=== PATIENT | female | born 1955 | race Caucasian/White ===

== ENCOUNTER 2020-05-03 16:09 | Emergency (ER) | payer OTHER ==
[~2020-05-03] VITALS: Ht 180.3 cm; Wt 59.0 kg
[2020-05-03 16:21] VITALS: BP_SYST 146
[2020-05-03] MEDS ORDERED: FLUO40CA8 PO (16:21)
[2020-05-03] MEDS ORDERED: ESZO3TAB27 PO (16:21)
[2020-05-03] MEDS ORDERED: BUSP15TA3 PO (16:21)
[2020-05-03] MEDS ORDERED: KETOROLAC TROMETHAMINE 60 MG/2 ML VIAL IM ONE (16:30)
[2020-05-03] MEDS ORDERED: ONDANSETRON 4 MG ODT TAB PO ONE (16:30)
[2020-05-03 16:57] LABS: BASOPHILS % (AUTO) 0.4 % (0.0-2.0); EOSINOPHILS % (AUTO) 0.5 % (0.0-4.0); HEMATOCRIT 38.5 % (36-48); HEMOGLOBIN 12.9 g/dL (12.0-16.0); LYMPHOCYTES # (AUTO) 0.8 K/uL (1.0-5.5); LYMPHOCYTES % (AUTO) 8.3 % (20.5-51.5); MEAN CORPUSCULAR HEMOGLOBIN 32 pg (27-31); MEAN CORPUSCULAR HGB CONC 34 % (32-36); MEAN CORPUSCULAR VOLUME 94 fL (79.0-98.0); MONOCYTES # (AUTO) 0.7 K/uL (0.0-1.0); MONOCYTES % (AUTO) 7.7 % (1.7-9.3); NEUTROPHILS # (AUTO) 7.7 K/uL (1.8-7.7); NEUTROPHILS % (AUTO) 83.1 % (40.0-70.0); PLATELET COUNT (AUTO) 188 K/uL (130-430); RED BLOOD CELL COUNT(AUTO) 4.09 MIL/uL (4.2-6.2); RED CELL DISTRIBUTION WIDTH 13.4 % (9.0-15.0); WHITE BLOOD COUNT (AUTO) 9.3 K/uL (4.8-10.8)
[2020-05-03 17:00] LABS: CALCIUM 9.1 mg/dL (8.4-11.0); CREATININE 0.72 mg/dL (0.55-1.30); POTASSIUM 4.3 mmol/L (3.5-5.1)
[2020-05-03 17:04] LABS: PROTHROMBIN TIME 9.9 SECS (9.5-12.5)
[2020-05-03 17:05] LABS: ALBUMIN 4.1 g/dL (3.4-4.8); TOTAL BILIRUBIN 0.9 mg/dL (0.0-1.0)
[2020-05-03 17:22] LABS: BILIRUBIN,URINE NEGATIVE (NEGATIVE); BLOOD, URINE NEGATIVE (NEGATIVE); CLARITY/URINE CLEAR (CLEAR); COLOR,URINE YELLOW (YELLOW); GLUCOSE,URINE NEGATIVE (NEGATIVE); KETONES,URINE NEGATIVE (NEGATIVE); LEUKOCYTE ESTERASE ,URINE NEGATIVE (NEGATIVE); NITRITE, URINE NEGATIVE (NEGATIVE); PROTEIN URINE NEGATIVE (NEGATIVE); UROBILINOGEN,URINE 0.2 (0.2-1.0)
[2020-05-03 18:17] VITALS: BP_SYST 146
== END 2020-05-03 18:15 | disposition home or self-care (01) ==
LOC: SED 16:09
DX: K80.50 Calculus of bile duct without cholangitis or cholecystitis without obstruction (principal)
CPT/HCPCS: 36415; 80053; 81003; 82150; 83605; 83615; 83690; 85025; 85610; 85730; 93005; 96372; 99284; J1885; Q0162

== ENCOUNTER 2023-06-07 10:31 | Emergency (ER) | payer OTHER ==
[~2023-06-07] VITALS: Ht 177.8 cm; Wt 73.9 kg
[~2023-06-07 10:31] MED LIST: BUSP15TA3 PO; ESZO3TAB27 PO; FLUO40CA8 PO
--- NOTE | 2023-06-07 10:43 | NUR ---
RECEIVED PT FROM [facility]. ASSUMED CARE. PT BIB SELF S/P FALL FROM 3RD FROM THE BOTTOM STAIR. PT SLIPPED WITH NO S/S OF SYNCOPE AND NO K/0. PT HAS RIGHT KNEE CONTUSION AND RIGHT ELBOW SWELLING AND CONTUSION. SKIN INTACT AT BOTH SITES. PT IS AAOX4, PERRL. TELEMONITOR SHOWS NSR, ON R/A. DENIES N/V/D/C. VSS. SIDERAILS UP X2. STATES PAIN IN RIGHT ELBOW IS 5/10.
[2023-06-07 10:48] VITALS: BP_SYST 141; PULSE 90; RESP 18; TEMP 97.3; O2SAT 98
--- NOTE | 2023-06-07 10:53 | NUR ---
ER at bedside examining patient.
--- NOTE | 2023-06-07 11:15 | NUR ---
Note yokastaryanne in EDM - 06/07/23 at [email or web address] BARNETT AT BEDSIDE TO ASSESS PT AND DISCUSS POC. PT WILL HAVE SURGERY ON LEFT HIP TOMORROW, TO BE NPO AFTER MIDNIGHT.
--- NOTE | 2023-06-07 11:24 | NUR ---
PT TAKEN FOR XRAY AT THIS TIME.
--- NOTE | 2023-06-07 11:31 | NUR ---
PT BACK IN BED 3 AND PLACED ON MONITOR.
[2023-06-07] MEDS ORDERED: TRAM50TA2 PO (11:43)
[2023-06-07 12:17] VITALS: BP_SYST 139; PULSE 78; RESP 18; TEMP 97.7; O2SAT 98
--- NOTE | 2023-06-07 12:26 | NUR ---
Patient given written and verbal discharge instructions and verbalizes understanding. ER MD discussed with patient the results and treatment provided. Patient in stable condition. ID arm band removed. Patient educated on pain management and to follow up with PMD. Pain Scale 0/10. Opportunity for questions provided and answered. Medication side effect fact sheet provided.
== END 2023-06-07 12:26 | disposition home or self-care (01) ==
LOC: SED 10:31
DX: S53.401A Unspecified sprain of right elbow, initial encounter (principal); S83.92XA Sprain of unspecified site of left knee, initial encounter; Z79.899 Other long term (current) drug therapy; W18.40XA Slipping, tripping and stumbling without falling, unspecified, initial encounter; Y93.89 Activity, other specified; Y92.89 Other specified places as the place of occurrence of the external cause; Y99.8 Other external cause status
CPT/HCPCS: 73564; 99284

== ENCOUNTER 2023-06-24 09:36 | Emergency (ER) | payer OTHER ==
[~2023-06-24] VITALS: Ht 177.8 cm; Wt 63.5 kg
[2023-06-24 09:36] VITALS: BP_SYST 141; PULSE 89; RESP 18; TEMP 98.4; O2SAT 100
[~2023-06-24 09:36] MED LIST changes: +TRAM50TA2 PO
[2023-06-24] MEDS ORDERED: IBUPROFEN 800 MG TABLET PO ONE (12:00)
[2023-06-24] MEDS ORDERED: HYDR-3927 PO (12:05)
[2023-06-24] MEDS ORDERED: IBUP-1969 PO (12:05)
[2023-06-24 12:18] VITALS: BP_SYST 136; PULSE 74; RESP 18; TEMP 97.3; O2SAT 98
== END 2023-06-24 12:19 | disposition home or self-care (01) ==
LOC: SED 09:36
DX: S43.402A Unspecified sprain of left shoulder joint, initial encounter (principal); S00.93XA Contusion of unspecified part of head, initial encounter; Z79.899 Other long term (current) drug therapy; W22.8XXA Striking against or struck by other objects, initial encounter; Y93.89 Activity, other specified; Y92.89 Other specified places as the place of occurrence of the external cause; Y99.8 Other external cause status
CPT/HCPCS: 70450-TC; 72125-TC; 73030; 76376; 99284